=== PATIENT | male | born 1985 | race Caucasian/White ===

== ENCOUNTER 2023-03-01 19:53 | Emergency (ER) | payer SELFPAY ==
[2023-03-01 19:56] VITALS: BP 122/68; PULSE 64; RESP 15; TEMP 36.3; O2SAT 98
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
== END 2023-03-01 20:58 | disposition home or self-care (01) ==
PROVIDERS: Emergency Provider Emergency Medicine
DX: S43.005A Unspecified dislocation of left shoulder joint, initial encounter (principal); V18.0XXA Pedal cycle driver injured in noncollision transport accident in nontraffic accident, initial encounter
CPT/HCPCS: 99281; 99282